=== PATIENT | female | born 1980 | race Caucasian/White ===

== ENCOUNTER → 2016-08-10 | Outpatient (CLI) | payer OTHER | LOC: MRI 13:19 | DX: M54.12 Radiculopathy, cervical region (principal); M50.21 Other cervical disc displacement, high cervical region; Z98.1 Arthrodesis status | CPT/HCPCS: 72156; A9577 ==

== ENCOUNTER → 2021-09-27 | Outpatient (CLI) | payer OTHER ==
[~2021-09-27] MED LIST: BACLOFEN10 MG PO; CYMBALTA30 MG PO; IBUPROFEN200 MG PO; LOSARTAN-HCTZ1 EAC2 PO; NEXIUM20 MG PO; PREDNISONE 10 M10 MG PO; TORADOL 10 MG T10 MG PO; ZOCOR40 MG PO
[2021-09-27 10:39] LABS: BUN/CREATININE RATIO 24 (0-10)
== END ==
LOC: OPSV2 08:59
PROVIDERS: Anesthesiology
DX: Z01.810 Encounter for preprocedural cardiovascular examination (principal)
CPT/HCPCS: 36415; 80048

== ENCOUNTER → 2021-09-29 | Day surgery (SDC) | payer OTHER ==
[~2021-09-29] VITALS: Ht 170.2 cm; Wt 95.3 kg
== END | disposition home or self-care (01) ==
LOC: OR 07:37
DX: M75.02 Adhesive capsulitis of left shoulder (principal); M65.812 Other synovitis and tenosynovitis, left shoulder; M75.52 Bursitis of left shoulder; K21.9 Gastro-esophageal reflux disease without esophagitis; I10 Essential (primary) hypertension; E78.00 Pure hypercholesterolemia, unspecified; F17.210 Nicotine dependence, cigarettes, uncomplicated; Z88.8 Allergy status to other drugs, medicaments and biological substances; Z79.899 Other long term (current) drug therapy
CPT/HCPCS: C1713; J0171; J0690; J1100; J1885; J2250; J2405; J2704; J2710; J2795; J3010